=== PATIENT | male | born 1975 | race Caucasian/White ===

== ENCOUNTER 2022-03-04 18:42 | Emergency (ER) | payer SELFPAY ==
--- NOTE | ~2022-03-04 | XR_ITS ---
EXAMINATION: XR chest 2V Exam Date/Time: 03/04/2022 18:48 [employer] HISTORY: MID CHEST PAINS, HX OF SMOKING Comparison: 12/31/2018. RESULT: Lines, tubes, and devices: None. Lungs and pleura: No focal consolidation or pneumothorax. Diffuse reticulonodular opacities. Cardiomediastinal silhouette: Stable. Other: No acute osseous or upper abdominal finding. IMPRESSION: Pulmonary opacities may represent bronchiolitis, as can be seen with atypical infection, asthma, aspi ration, and small airways disease. Reviewed, dictated and finalized at location [facility] IMPRESSION: Pulmonary opacities may represent bronchiolitis, as can be seen with atypical i nfection, asthma, aspiration, and small airways disease.
[2022-03-04 18:48] VITALS: BP 128/76; PULSE 74; RESP 18; TEMP 36.9; O2SAT 98
[2022-03-04 18:56] LABS: Basophils Absolute Auto 0.1 K/mm3 (0.0-0.1); Basophils Percent Auto 1.2 % (0.2-1.2); Eosinophils Absolute Auto 0.1 K/mm3 (0-0.3); Eosinophils Percent Auto 2.8 % (0-4.4); Hematocrit 40.4 % (42.0-52.0); Hemoglobin 13.6 g/dL (14.0-18.0); Immature Granulocyte Absolute 0.01 K/mm3 (0.00-0.031); Immature Granulocyte Percent A 0.2 % (0-0.5); Lymphocytes Absolute Auto 1.78 K/mm3 (0.9-3.2); Lymphocytes Percent Auto 41.7 % (18.3-44.2); Mean Corpuscular HGB Conc 33.7 g/dl (32-36); Mean Corpuscular Hemoglobin 33.4 pg (26-34); Mean Corpuscular Volume 99.3 fl (80-100); Mean Platelet Volume 9.4 fl (7.4-10.4); Monocytes Absolute Auto 0.3 K/mm3 (0.1-0.6); Monocytes Percent Auto 7.3 % (2.6-8.5); Neutrophils Percent Auto 46.8 % (45.5-73.1); Platelet Count Result 251 k/mm3 (150-375); Red Blood Count 4.07 M/mm3 (4.6-6.20); Red Cell Distribution Width 12.6 % (11.5-14.5); White Blood Count 4.3 K/mm3 (4.5-10.0)
[2022-03-04 19:05] LABS: Alanine Aminotransferase 25 U/L (6-50); Albumin Level 4.3 g/dL (3.5-5.1); Alkaline Phosphatase 65 U/L (38-126); Anion Gap 7 mmol/L (8-16); Aspartate Amino Transferase 37 U/L (17-59); Bilirubin,Total 0.3 mg/dL (0.2-1.3); Blood Urea Nitrogen 16 mg/dL (9-20); Calcium 8.5 mg/dL (8.4-10.2); Carbon Dioxide 28 mmol/L (22-30); Chloride 109 mmol/L (98-107); Estimated CRCL calculation 68 ml/min; Estimated Glomerular Filt Rate 60; Glucose 104 mg/dL (65-110); Lipase 77 U/L (23-300); Potassium 4.7 mmol/L (3.4-5.0); Sodium 144 mmol/L (137-145)
[2022-03-04 19:17] LABS: Troponin I < 0.012 ng/mL (0.000-0.034)
[2022-03-04 19:18] LABS: Partial Thromboplastin Time 26.7 SECONDS (22.3-36.8)
[2022-03-04 19:19] LABS: INR 0.9; Prothrombin Time 11.9 Seconds (11.1-14.7)
--- NOTE | 2022-03-04 19:22 | ED.GENADULT ---
HPI - General Adult General Chief complaint: Chest Pain Stated complaint: CHEST PAIN Time Seen by Provider: 03/04/22 19:07 History of Present Illness HPI narrative: This is a 46-year-old male presenting to ED with a chief complaint of chest pain. Patient was brought to the hospital by the police department after a suspected DUI. Patient states that he started having chest pain when the police started her arresting him. He describes as an elephant sitting on his chest, that radiates to his left leg, is 10/10 in intensity and constant. He says he experienced pain like this before when he had a divorce. There are no exacerbating or alleviating factors. Patient says that he is diaphoretic and that he does feel short of breath and is requesting a COVID test. Patient denies nausea, vomiting, fever chills, abdominal pain, numbness tingling or weakness in any extremity. Patient patient denies any use of alcohol. Related Data Allergies Allergy/AdvReac Type Severity Reaction Status Date / Time No Known Allergies Allergy Verified 03/04/22 18:53 Review of Systems Review of Systems: CONSTITUTIONAL: Denies night sweats. EYES: No eye pain ENT: Denies rhinorrhea CARDIOVASCULAR: Denies palpitations RESPIRATORY: Denies hemoptysis GASTROINTESTINAL: Denies hematemesis GENITOURINARY: Denies hematuria. SKIN: Denies rash MUSCULOSKELETAL: Denies myalgia. NEUROLOGIC: Denies weakness. PSYCHIATRIC: Denies delusions Exam Narrative: APPEARANCE: No apparent distress. Head: atraumatic. EYES: EOMI, NOSE: Atraumatic NECK: Trachea midline RESPIRATORY: No increased rate of breathing, clear to auscultation in all sargent CARDIOVASCULAR: RRR, no peripheral edema ABDOMINAL: Non-distended, soft nontender no guarding or rebound MUSCULOSKELETAl: No obvious deformities NEURO: Alert. Moving 4/4 extremities, able ambulate SKIN:: Warm, dry. Normal color PSYCHIATRIC: Normal affect Course Vital Signs Vital signs: Vital Signs Temperature 98.5 F 03/04/22 18:48 Pulse Rate 74 03/04/22 18:48 Respiratory Rate 18 03/04/22 18:48 Blood Pressure 128/76 03/04/22 18:48 Pulse Oximetry 98 03/04/22 18:48 Oxygen Delivery Room Air 03/04/22 18:48 Temperature 98.5 F 03/04/22 18:48 Pulse Rate 74 03/04/22 18:48 Respiratory Rate 18 03/04/22 18:48 Blood Pressure 128/76 03/04/22 18:48 Pulse Oximetry 98 03/04/22 18:48 Oxygen Delivery Room Air 03/04/22 18:48 Medical Decision Making MDM Narrative Medical decision making narrative: This is a 46-year-old male presenting ED with a chief complaint of chest pain after being arrested by police for suspected DUI. Differential includes ACS, anxiety, malingering. Lab work including 2 troponins, chest x-ray and COVID test been ordered. Patient was released out of police custody to undergo a medical workup. The patient eloped as soon as police left the building. Vital Signs Vital Signs: Vital Signs Temperature 98.5 F 03/04/22 18:48 Pulse Rate 74 03/04/22 18:48 Respiratory Rate 18 03/04/22 18:48 Blood Pressure 128/76 03/04/22 18:48 Pulse Oximetry 98 03/04/22 18:48 Oxygen Delivery Room Air 03/04/22 18:48 Temperature 98.5 F 03/04/22 18:48 Pulse Rate 74 03/04/22 18:48 Respiratory Rate 18 03/04/22 18:48 Blood Pressure 128/76 03/04/22 18:48 Pulse Oximetry 98 03/04/22 18:48 Oxygen Delivery Room Air 03/04/22 18:48 Lab Data Result diagrams: 03/04/22 18:51 03/04/22 18:51 Labs: Lab Results 03/04/22 03/04/22 03/04/22 Range/Units 18:51 18:51 18:51 WBC 4.3 L (4.5-10.0) K/mm3 RBC 4.07 L (4.6-6.20) M/mm3 Hgb 13.6 L (14.0-18.0) g/dL Hct 40.4 L (42.0-52.0) % MCV 99.3 (80-100) fl MCH 33.4 (26-34) pg MCHC 33.7 (32-36) g/dl RDW 12.6 (11.5-14.5) % Plt Count 251 (150-375) k/mm3 MPV 9.4 (7.4-10.4) fl Immature Gran % (Auto) 0.2 (0-0.5) % Neut % (Au
== END 2022-03-04 19:40 | disposition left against medical advice (07) ==
LOC: ANHED 19:30
PROVIDERS: Emergency Medicine; Emergency Provider Emergency Medicine
DX: R07.9 Chest pain, unspecified (principal)
CPT/HCPCS: 36415; 71046; 80053; 83690; 84484; 85025; 85610; 85730; 99284

== ENCOUNTER 2022-03-05 13:25 | Emergency (ER) | payer OTHER, SELFPAY ==
[2022-03-05 13:24] VITALS: BP 157/93; PULSE 68; RESP 16; TEMP 36.8; O2SAT 99
[2022-03-05 14:15] LABS: Basophils Percent Auto 0.5 % (0.2-1.2); Eosinophils Percent Auto 0.5 % (0-4.4); Hematocrit 41.3 % (42.0-52.0); Hemoglobin 13.8 g/dL (14.0-18.0); Immature Granulocyte Absolute 0.01 K/mm3 (0.00-0.031); Immature Granulocyte Percent A 0.2 % (0-0.5); Lymphocytes Absolute Auto 1.58 K/mm3 (0.9-3.2); Lymphocytes Percent Auto 28.8 % (18.3-44.2); Mean Corpuscular HGB Conc 33.4 g/dl (32-36); Mean Corpuscular Hemoglobin 32.9 pg (26-34); Mean Corpuscular Volume 98.3 fl (80-100); Mean Platelet Volume 9.4 fl (7.4-10.4); Monocytes Absolute Auto 0.5 K/mm3 (0.1-0.6); Monocytes Percent Auto 8.2 % (2.6-8.5); Neutrophils Absolute Auto 3.4 K/mm3 (1.3-6.7); Neutrophils Percent Auto 61.8 % (45.5-73.1); Platelet Count Result 253 k/mm3 (150-375); Red Cell Distribution Width 12.5 % (11.5-14.5); White Blood Count 5.5 K/mm3 (4.5-10.0)
--- NOTE | 2022-03-05 14:15 | ED.GENADULT ---
HPI - General Adult General Chief complaint: Psychiatric Symptoms Stated complaint: psych eval Time Seen by Provider: 03/05/22 13:47 History of Present Illness HPI narrative: Patient is a 46-year-old male with a history of depression presenting with suicidal ideation. Patient states that he has suffered from a poor mood for at least the last 10 years. States that it has worsened lately and he has had increasing frequency and thoughts of self-harm. States that last night he put a garbage bag over his head to cut off his air supply. States that he was then awoken by his mom and the bag had fallen off his head. States he was shocked that he woke up. States that he has never attempted self-harm in the past so he came in for further evaluation. Denies homicidal thoughts. Denies delusions or paranoia. Denies prior psychiatric hospitalizations. No fevers or chills, headache, chest pain, shortness of breath, abdominal pain, nausea or vomiting, diarrhea. Related Data Allergies Allergy/AdvReac Type Severity Reaction Status Date / Time No Known Allergies Allergy Verified 03/05/22 13:29 Review of Systems Review of Systems: All systems reviewed & are unremarkable except as noted in HPI and below Exam Narrative: GENERAL: Nontoxic, male laying in bed with his mask over his face HEAD: Normocephalic, atraumatic. EYES: PERRLA and EOMI. ENT: Nares clear, no rhinorrhea or epistaxis. Mucous membranes moist. NECK: Supple. CHEST: Clear to auscultation. No respiratory distress. HEART: Regular rate and rhythm. No murmur heard. Normal peripheral pulses. ABDOMEN: Soft, nontender, nondistended, normal active bowel sounds. EXTREMITIES: Normal range of motion. No edema. SKIN: Warm, dry, no rash. NEURO: No focal deficits. Alert and oriented x3. PSYCH: Flat affect, depressed mood, endorses suicidal ideation Course Vital Signs Vital signs: Vital Signs Temperature 98.2 F 03/05/22 13:24 Pulse Rate 68 03/05/22 13:24 Respiratory Rate 16 03/05/22 13:24 Blood Pressure 157/93 H 03/05/22 13:24 Pulse Oximetry 99 03/05/22 13:24 Temperature 97.8 F 03/05/22 22:47 Pulse Rate 51 L 03/05/22 22:47 Respiratory Rate 18 03/05/22 22:47 Blood Pressure 123/78 03/05/22 22:47 Pulse Oximetry 98 03/05/22 22:47 Medical Decision Making MDM Narrative Medical decision making narrative: Patient is a 46-year-old male presenting with suicidal ideation and suicide attempt last night. Patient is hypertensive, though his vitals are within normal limits. Exam remarkable for the above. Plan for psych labs and mental health consult. Blood work and urine are unremarkable. Patient was evaluated by the crisis team who feel he is appropriate for hospitalization. Patient will be voluntarily hospitalized once a facility is found. Vital Signs Vital Signs: Vital Signs Temperature 98.2 F 03/05/22 13:24 Pulse Rate 68 03/05/22 13:24 Respiratory Rate 16 03/05/22 13:24 Blood Pressure 157/93 H 03/05/22 13:24 Pulse Oximetry 99 03/05/22 13:24 Temperature 97.8 F 03/05/22 22:47 Pulse Rate 51 L 03/05/22 22:47 Respiratory Rate 18 03/05/22 22:47 Blood Pressure 123/78 03/05/22 22:47 Pulse Oximetry 98 03/05/22 22:47 Lab Data Result diagrams: 03/05/22 13:52 03/05/22 13:52 Labs: Lab Results 03/05/22 03/05/22 03/05/22 Range/Units 13:52 13:52 13:52 WBC (4.5-10.0) K/mm3 RBC (4.6-6.20) M/mm3 Hgb (14.0-18.0) g/dL Hct (42.0-52.0) % MCV (80-100) fl MCH (26-34) pg MCHC (32-36) g/dl RDW (11.5-14.5) % Plt Count (150-375) k/mm3 MPV (7.4-10.4) fl Immature Gran % (Auto) (0-0.5) % Neut % (Auto) (45.5-73.1) % Lymph % (Auto) (18.3-44.2) % [place] % (Auto) (2.6-8.5) % Eos % (Auto) (0-4.4) % Baso % (Auto) (0.2-1.2) % Lymph # (Auto) (0.9-3.2) K/mm3 [place]ether # (Auto) (0.1-0.6) K/mm3 Eos # (Auto) (0-0.3)
[2022-03-05 14:18] LABS: Alanine Aminotransferase 24 U/L (6-50); Albumin Level 4.3 g/dL (3.5-5.1); Alkaline Phosphatase 77 U/L (38-126); Anion Gap 5 mmol/L (8-16); Aspartate Amino Transferase 32 U/L (17-59); Bilirubin,Total 0.7 mg/dL (0.2-1.3); Blood Urea Nitrogen 17 mg/dL (9-20); Calcium 8.7 mg/dL (8.4-10.2); Carbon Dioxide 26 mmol/L (22-30); Chloride 106 mmol/L (98-107); Estimated CRCL calculation 88 ml/min; Estimated Glomerular Filt Rate > 60; Glucose 88 mg/dL (65-110); Potassium 3.9 mmol/L (3.4-5.0); Sodium 137 mmol/L (137-145)
[2022-03-05 14:19] LABS: Appearance Urine Clear (Clear); Bilirubin Urine Negative (Negative); Blood Urine Trace-intact (Negative); Color Urine Yellow (Yellow); Glucose Urine UA Negative (Negative); Ketones Urine Negative (Negative); Leukocyte Esterase Ur Negative LEU/UL (Negative); Nitrate Urine Negative (Negative); Protein Urine 1+ mg/dL (Negative); Urobilinogen Urine 0.2 mg/dL (<2.0)
[2022-03-05 14:22] LABS: Bacteria Urine Trace /hpf; Mucus Urine Rare /lpf; WBC Urine 0-3 /hpf
[2022-03-05 14:25] LABS: Ethanol < 10 mg/dL (<10)
[2022-03-05 14:28] LABS: Amphetamine Screen Urine Negative (Negative); Barbiturate Screen Urine Negative (Negative); Benzodiazepines Screen Urine Negative (Negative); Cannabinoid Screen Urine Negative (Negative); Cocaine Screen Urine Negative (Negative); Methadone Screen Urine Negative (Negative); Opiate Screen Urine Negative (Negative); Phencyclidine Screen Urine Negative (Negative)
[2022-03-05 14:31] LABS: Add Urine Microscopic? YES
[2022-03-05 14:44] LABS: SARS-CoV-2 RNA PCR Negative
--- NOTE | 2022-03-05 15:15 | PC.NURSE ---
Medically Cleared per Dr. Castellanos
--- NOTE | 2022-03-05 15:21 | PC.NURSE ---
[facility] called, pt does not qualify for [facility] evaluation
--- NOTE | 2022-03-05 15:24 | PC.NURSE ---
Valarie urbina Carmel notified of patient's arrival, expected arrival in next 2 hours
--- NOTE | 2022-03-05 16:47 | PC.NURSE ---
Safety Tray ordered
--- NOTE | 2022-03-05 17:45 | PC.NURSE ---
Pt to be voluntary admission for psychiatric treatment
--- NOTE | 2022-03-05 19:53 | PC.NURSE ---
[facility] called and questions answered for consideration for placement, will call back with more information after consulting physician
[2022-03-05 22:47] VITALS: BP 123/78; PULSE 51; RESP 18; TEMP 36.6; O2SAT 98
== END 2022-03-05 22:45 ==
PROVIDERS: Emergency Medicine; Emergency Provider Emergency Medicine
DX: T71.122 Asphyxiation due to plastic bag, intentional self-harm (principal); F32.A Depression, unspecified; Z20.822 Contact with and (suspected) exposure to COVID-19
CPT/HCPCS: 36415; 80053; 80307; 81001; 84443; 85025; 99285; U0003; U0005